=== PATIENT | female | born 1980 | race American Indian/Alaskan Native ===

== ENCOUNTER 2017-10-06 14:19 | Emergency (ER) | payer SELFPAY ==
[2017-10-06 15:08] VITALS: BP 110/64
[2017-10-06] MEDS ORDERED: BOOSTRIX IM ONE (16:31)
[2017-10-06] MEDS ORDERED: TRIPLE ANTIBIOTIC TP ONE (16:31)
[2017-10-06] MEDS ORDERED: XYLOCAINE 1% 20 mL INFILTRATI ONE (16:31)
[2017-10-06] MEDS ORDERED: MOTRIN PO ONE (16:31)
--- NOTE | 2017-10-06 16:31 | Emergency Department Report ---
Blank Doc - Documentation Documentation: Patient is a 36-year-old female who cut her hand at work with a piece of glass. Patient has a laceration at the base of the left thumb. Patient will be moved to a treatment room for laceration repair.
[2017-10-06] MEDS ORDERED: NACL 0.9% IR ONE ×2 (16:45→17:49)
[2017-10-06] MEDS ORDERED: NORCO 5/325 PO ONE (17:30)
[2017-10-06] MEDS ORDERED: XYLOCAINE 1% MPF 5 mL ONE (17:38)
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
== END 2017-10-06 17:45 | disposition home or self-care (01) ==
LOC: ED 14:19
DX: S61.412A Laceration without foreign body of left hand, initial encounter (principal); F17.200 Nicotine dependence, unspecified, uncomplicated; W25.XXXA Contact with sharp glass, initial encounter; Y93.89 Activity, other specified; Y92.89 Other specified places as the place of occurrence of the external cause; Y99.8 Other external cause status
CPT/HCPCS: 90471; 90715; 99282; A6250